=== PATIENT | male | born 1990 | race Asian ===

== ENCOUNTER 2018-01-06 16:25 | Outpatient (CLI) | payer OTHER ==
--- NOTE | 2018-01-06 16:47 | RAD ---
CHEST TWO VIEWS: 01/06/18 HISTORY: Moderate persistent asthma. COMPARISON: None. FINDINGS: Normal cardiac silhouette. Pulmonary vessels and hilum are normal. No consolidation, or mass. No pneu mothorax or osseous abnormalities. IMPRESSION: No acute cardiopulmonary process. POS: [facility]
== END 2018-01-06 16:26 | disposition home or self-care (01) ==
LOC: BICRAD 16:25
PROVIDERS: ATTEND Family Medicine
DX: J45.41 Moderate persistent asthma with (acute) exacerbation (principal); R93.89 Abnormal findings on diagnostic imaging of other specified body structures
CPT/HCPCS: 71046